=== PATIENT | male | born 1995 | race Caucasian/White ===

== ENCOUNTER 2023-05-14 21:48 | Emergency (ER) | payer OTHER ==
[2023-05-14 22:13] VITALS: BP 134/95; PULSE 88; RESP 19; TEMP 98.1; BMI 23.6
== END 2023-05-14 22:57 | disposition home or self-care (01) ==
LOC: FER 21:48
DX: S02.2XXA Fracture of nasal bones, initial encounter for closed fracture (principal); R04.0 Epistaxis; Y04.0XXA Assault by unarmed brawl or fight, initial encounter
CPT/HCPCS: 70160-TC-FY; 99283-25

== ENCOUNTER 2024-07-09 06:21 | Emergency (ER) | payer OTHER ==
[2024-07-09 06:45] VITALS: BP 128/87; PULSE 76; RESP 20; TEMP 98.1; BMI 23.6
== END 2024-07-09 08:09 | disposition home or self-care (01) ==
LOC: FER 06:21
DX: J02.9 Acute pharyngitis, unspecified (principal); T59.3X3A Toxic effect of lacrimogenic gas, assault, initial encounter; Y35.811A Legal intervention involving manhandling, law enforcement official injured, initial encounter
CPT/HCPCS: 99283-25